=== PATIENT | male | born 1960 | race Caucasian/White ===

== ENCOUNTER 2023-05-11 15:28 | Outpatient (CLI) | payer BC ==
[~2023-05-11] VITALS: Ht 180.3 cm; Wt 72.2 kg
[2023-05-11 15:54] VITALS: BP 140/80; O2SAT 98
[2023-05-11] MEDS ORDERED: BEZLOTOXUMAB 700 MG in NS 100 ML IV ONE (16:05)
[2023-05-11 17:26] VITALS: BP 126/74; O2SAT 98
== END 2023-05-11 17:40 | disposition home or self-care (01) ==
LOC: M INFU 15:28
PROVIDERS: ATTEND Internal Medicine Infectious Disease
DX: A04.71 Enterocolitis due to Clostridium difficile, recurrent (principal); Z88.0 Allergy status to penicillin
CPT/HCPCS: 96365; J0565

== ENCOUNTER 2023-05-30 15:39 | Outpatient (CLI) | payer BC ==
[2023-05-30] MEDS ORDERED: FECAL MICROBIOTA, LIVE-JSLM 150ML BAG (REBYOTA) RC ONE (16:30)
[2023-05-30 16:32] VITALS: BP 163/76; O2SAT 99
== END 2023-05-30 16:15 ==
LOC: M INFU 15:39
PROVIDERS: ATTEND Internal Medicine Infectious Disease
DX: A04.71 Enterocolitis due to Clostridium difficile, recurrent (principal); Z88.0 Allergy status to penicillin